=== PATIENT | male | born 1995 | race Two or more races ===

== ENCOUNTER 2022-03-16 17:39 | Emergency (ER) | payer OTHER ==
[~2022-03-16] VITALS: Ht 167.6 cm; Wt 65.8 kg
== END 2022-03-16 19:44 | disposition home or self-care (01) ==
LOC: ER 17:39
DX: S61.210A Laceration without foreign body of right index finger without damage to nail, initial encounter (principal); X58.XXXA Exposure to other specified factors, initial encounter; Y93.9 Activity, unspecified; Y92.9 Unspecified place or not applicable; Y99.9 Unspecified external cause status